=== PATIENT | female | born 1970 | race Two or more races ===

== ENCOUNTER 2020-08-30 07:16 | Outpatient (CLI) | payer OTHER | END 2020-08-30 07:26 | disposition home or self-care (01) | LOC: MAMO-SONO 07:16 | PROVIDERS: ATTEND Internal Medicine Endocrinology, Diabetes & Metabolism | DX: K76.0 Fatty (change of) liver, not elsewhere classified (principal); K80.80 Other cholelithiasis without obstruction ==

== ENCOUNTER 2022-09-11 07:19 | Outpatient (CLI) | payer OTHER ==
[~2022-09-11 07:19] MED LIST: AVALIDE PO; FORTAMET1000 MG PO; GLIPIZIDE XL5 MG PO; HORIZANT600 MG PO; LIPITOR20 MG PO; MOBIC PO; TRULICITY1.5 MG/0.5
== END 2022-09-11 07:30 | disposition home or self-care (01) ==
LOC: MRI 07:19
PROVIDERS: ATTEND Neuromusculoskeletal Medicine & OMM
DX: R42 Dizziness and giddiness (principal); H93.3X9 Disorders of unspecified acoustic nerve; M50.20 Other cervical disc displacement, unspecified cervical region; M50.30 Other cervical disc degeneration, unspecified cervical region
CPT/HCPCS: 70553; 72141

== ENCOUNTER 2022-10-16 07:00 | Outpatient (CLI) | payer OTHER | END 2022-10-16 09:19 | disposition home or self-care (01) | LOC: SONOGRAMA 07:00 | PROVIDERS: ATTEND Internal Medicine Endocrinology, Diabetes & Metabolism | DX: E04.8 Other specified nontoxic goiter (principal) ==

== ENCOUNTER 2023-04-30 08:09 | Outpatient (CLI) | payer OTHER | END 2023-04-30 08:15 | disposition home or self-care (01) | LOC: SONOGRAMA 08:09 | PROVIDERS: ATTEND Pathology Anatomic Pathology & Clinical Pathology | DX: C73 Malignant neoplasm of thyroid gland (principal) ==